=== PATIENT | female | born 1960 | race Caucasian/White ===

== ENCOUNTER → 2023-08-20 09:10 | Outpatient (REF) | payer OTHER, SELFPAY | LOC: MRI 3T 09:10 | PROVIDERS: ATTENDING PHYSICIAN Nurse Practitioner; FAMILY PHYSICIAN Family Medicine | DX: H53.9 Unspecified visual disturbance (principal); Z87.820 Personal history of traumatic brain injury; H51.9 Unspecified disorder of binocular movement | CPT/HCPCS: 70551 ==

== ENCOUNTER → 2023-09-23 12:06 | Outpatient (REF) | payer OTHER, SELFPAY | LOC: RAD 12:06 | PROVIDERS: FAMILY PHYSICIAN Family Medicine | DX: I10 Essential (primary) hypertension (principal); H51.11 Convergence insufficiency; H53.9 Unspecified visual disturbance; H53.2 Diplopia; R26.89 Other abnormalities of gait and mobility; G44.329 Chronic post-traumatic headache, not intractable; M54.2 Cervicalgia | CPT/HCPCS: 72050 ==

== ENCOUNTER → 2023-10-10 09:18 | Outpatient (REF) | payer OTHER, SELFPAY | LOC: RAD 09:18 | PROVIDERS: ATTENDING PHYSICIAN Internal Medicine Gastroenterology; FAMILY PHYSICIAN Family Medicine | DX: K57.92 Diverticulitis of intestine, part unspecified, without perforation or abscess without bleeding (principal) | CPT/HCPCS: 74177; Q9967 ==

== ENCOUNTER → 2023-11-07 06:31 | Day surgery (SDC) | payer OTHER, SELFPAY | LOC: GI 06:31 | PROVIDERS: ATTENDING PHYSICIAN Internal Medicine Gastroenterology | DX: K57.30 Diverticulosis of large intestine without perforation or abscess without bleeding (principal); K64.0 First degree hemorrhoids; D12.0 Benign neoplasm of cecum; D12.3 Benign neoplasm of transverse colon; K62.1 Rectal polyp; K63.5 Polyp of colon | CPT/HCPCS: 45385; 45381; 88305 ==

== ENCOUNTER → 2023-11-14 13:49 | Outpatient (REF) | payer OTHER, SELFPAY | LOC: PAVMRI 13:49 | PROVIDERS: ATTENDING PHYSICIAN Nurse Practitioner; OTHER PHYSICIAN Surgery; PRIMARYCARE PHYSICIAN Family Medicine | DX: S06.0X0S Concussion without loss of consciousness, sequela (principal); Z87.820 Personal history of traumatic brain injury; H57.02 Anisocoria; I10 Essential (primary) hypertension; H51.11 Convergence insufficiency; H53.9 Unspecified visual disturbance; H53.2 Diplopia; R26.89 Other abnormalities of gait and mobility; G44.329 Chronic post-traumatic headache, not intractable; S06.0X0D Concussion without loss of consciousness, subsequent encounter; M54.2 Cervicalgia | CPT/HCPCS: 70546; 70549; A9585 ==

== ENCOUNTER 2023-11-24 11:21 | Emergency (ER) | payer SELFPAY ==
[2023-11-24 11:25] VITALS: BP 168/97
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
[2023-11-24] MEDS: ASPIRIN 325 MG PO (12:34)
[2023-11-24 13:16] VITALS: BP 150/91
[2023-11-24 15:06] VITALS: BP 164/89
== END 2023-11-24 15:05 | disposition home or self-care (01) ==
LOC: EMR 11:21
PROVIDERS: EMERGENCY PHYSICIAN Emergency Medicine; FAMILY PHYSICIAN Family Medicine
DX: I25.110 Atherosclerotic heart disease of native coronary artery with unstable angina pectoris (principal); V43.52XA Car driver injured in collision with other type car in traffic accident, initial encounter; Y92.410 Unspecified street and highway as the place of occurrence of the external cause; I25.2 Old myocardial infarction; Z90.49 Acquired absence of other specified parts of digestive tract; Z95.5 Presence of coronary angioplasty implant and graft
CPT/HCPCS: 99284; 70450; 72125; 93005

== ENCOUNTER → 2024-02-28 13:19 | Outpatient (REF) | payer OTHER, MEDICARE, SELFPAY ==
[2024-02-28 14:21] LABS: Blood Urea Nitrogen 12 mg/dl (7-17)
== END ==
LOC: REG 13:19
PROVIDERS: ATTENDING PHYSICIAN Internal Medicine Gastroenterology; FAMILY PHYSICIAN Family Medicine
DX: K57.92 Diverticulitis of intestine, part unspecified, without perforation or abscess without bleeding (principal)
CPT/HCPCS: 36415; 82565; 84520

== ENCOUNTER → 2024-02-29 13:41 | Outpatient (REF) | payer MEDICARE, SELFPAY | LOC: HWRAD 13:41 | PROVIDERS: ATTENDING PHYSICIAN Internal Medicine Gastroenterology; FAMILY PHYSICIAN Family Medicine | DX: K57.92 Diverticulitis of intestine, part unspecified, without perforation or abscess without bleeding (principal) | CPT/HCPCS: 74177; Q9967 ==

== ENCOUNTER → 2024-03-23 09:41 | Outpatient (REF) | payer MEDICARE, SELFPAY | LOC: HWRAD 09:41 | PROVIDERS: ATTENDING PHYSICIAN Internal Medicine Gastroenterology; FAMILY PHYSICIAN Family Medicine | DX: R10.84 Generalized abdominal pain (principal) | CPT/HCPCS: 76700 ==

== ENCOUNTER 2024-04-02 15:07 | Emergency (ER) | payer MEDICARE, SELFPAY ==
[2024-04-02 15:19] VITALS: BP 175/140
[2024-04-02 16:15] VITALS: BP 176/111
--- NOTE | 2024-04-02 17:33 | ED.GENMED ---
History of Present Illness
General
Chief Complaint: Skin Surface Trauma
Source: patient
Exam Limitations: none
Time Seen by Provider: 04/02/24 17:08
Nursing documentation reviewed up to this point in time: agreed with
History of Present Illness
History of Present Illness:
64 y/o F
R hand dominant
this am she accidnetally cut the top of her right 4th finger and had a flap laceration
no deficits with function
went to where she had the wound irrigated and then it was glued and pt believes the glue looks worse than the origianl wound and she wants 2nd opinion
she also felt like her dressing was too tight
tetanus is likey UTD, she doesn't want anothe calos.
Past History
Past History
ED Past Medical History: Other (History of headaches, GI bleed)
ED Past Surgical History: Cholecystectomy and Other (Exploratory laparotomy following blunt trauma and repair of liver laceration, breast augmentation, shoulder surgery)
Social History
Tobacco: Non-smoker
Alcohol: None
Drug: None
Personal: Single
Living: alone
Employment: Employed
Review of Systems
Review of Systems
Allergies reviewed?: Yes
All Other Systems: Not applicable
Phy Exam
Physical Exam
Physical Exam:
GENERAL: Alert , in no apparent distress, comfortable at rest
HEAD: NCAT
CV: cap refill intact;
NEUROLOGICAL: Alert and oriented, no focal neuro deficits, , 5/5 strength, sensation intact, ambulation slight limp right leg
SKIN: Warm and dry,
flap laceration dorsum PIP joint R 4th finger is closed; with glue that is puprplish in color, thickened and also with slight blood under the glue
there is no sign of wound dehiscence
MUSCULOSKELETAL: wound is glued
no deficitis
finger held in extensio ndue to glue
PSYCH: Normal and appropriate interaction.
Course
Vital Signs
Initial and Last Documented VS:
Initial Vital Signs
Temp Pulse Resp BP Pulse Ox
36.9 C 106 18 175/140 97
04/02/24 15:19 04/02/24 15:19 04/02/24 15:19 04/02/24 15:19 04/02/24 15:19
Last Documented Vital Signs
Temp Pulse Resp BP Pulse Ox
36.9 C 100 16 176/111 97
04/02/24 15:19 04/02/24 16:15 04/02/24 16:15 04/02/24 16:15 04/02/24 15:19
MDM/Problems Addressed
Differential Diagnosis Includes:
wound care, laceration
MDM/Problems Addressed:
64 y/o F
with laceration flap to R PIP joint of 4th finger
closed at with glue
did not like cosmesis of the glue
but the wound appears closed
did offer to have th epatient massage the wound with petroleum to try to remove it and then i could stitch it but she declined hwich i believe is rasonable to leave it
looser dressing applied
recommen dthe finger splint
*Critical Care Note
Total Time (30-74mins, 75-104mins- exclusive of procedures): Not Applicable
ED Attending Note
-
Portions of this chart may have been created with voice recognition software.� Occasional wrong word or��sound alike� substitutions may have occurred due to the inherent limitations of voice recognition software.
Discharge Plan
Departure
Patient Disposition: Home (Routine Discharge)
Date of Disposition: 04/02/24
Time of Disposition: 17:33
Patient with high blood pressure during this ER visit?: Yes
Condition: Fair
Covid-19: Not Applicable
Discharge Problem:
Laceration of right ring finger, Visit for wound check
Instructions: Laceration Repair With Glue (DC), BLOOD PRESSURE
Prescriptions:
No Action
sumatriptan succinate [Imitrex] 50 MG tablet
50 mg PO DAILYPRN PRN (Reason: migraine)
Rx Instructions:
Can take 2nd stab if needed daily.
cyanocobalamin (vitamin B-12) 1,000 mcg/mL Kit
1,000 mcg SC QMONTH
Kariva (28)
1 tab PO DAILY
Patient Comments:
migraines
albuterol 90 mcg/actuation Aerosol
90 mcg INHALATION DAILY PRN (Reason: asthma)
Referrals:
Tevin Zamudio MD [Family Provider] - Follow up in 2-3 days
Activity Restrictions/Additional Instructions:
Keep the wound clean and dry for 2 days. You can change the dressing tomorrow and use a Band-Aid in the finger splint to keep your finger straight. Do this for 2 days. Then you can remove the dressings and get your hand wet as usual. The glue
will peel off and follow off over the next 3 to 5 days. Return for any concerns. Your blood pressure was quite elevated which could be probably from being stressed but make sure to have this rechecked.
Interventions
Interventions:
*Risk Screen - Suicide Last Done: 04/02/24 15:19
*General Assessment Last Done: 04/02/24 15:19
*Neglect/Abuse Screening Last Done: 04/02/24 15:19
*Nursing Disposition Last Done: 04/02/24 17:44
ED-Skin Assessment Last Done: 04/02/24 16:15
Discharge Date and Time
Discharge Date/Time: 04/02/24 17:45
Print Language: LIBERIAN
== END 2024-04-02 17:45 | disposition home or self-care (01) ==
LOC: EMR 15:07
PROVIDERS: EMERGENCY PHYSICIAN Emergency Medicine; FAMILY PHYSICIAN Family Medicine
DX: S61.214A Laceration without foreign body of right ring finger without damage to nail, initial encounter (principal); W45.8XXA Other foreign body or object entering through skin, initial encounter; Z90.49 Acquired absence of other specified parts of digestive tract
CPT/HCPCS: 99282

== ENCOUNTER → 2024-05-17 13:43 | Outpatient (REF) | payer MEDICARE, SELFPAY | LOC: MRI 3T 13:43 | PROVIDERS: ATTENDING PHYSICIAN Orthopaedic Surgery; FAMILY PHYSICIAN Family Medicine | DX: M75.82 Other shoulder lesions, left shoulder (principal) | CPT/HCPCS: 23350; 73040; 73222 ==

== ENCOUNTER → 2024-05-21 06:19 | Day surgery (SDC) | payer MEDICARE, SELFPAY | LOC: GI 06:19 | PROVIDERS: ATTENDING PHYSICIAN Internal Medicine Gastroenterology | PROC: 0DBL8ZX Excision of Transverse Colon, Via Natural or Artificial Opening Endoscopic, Diagnostic (ICD-10-PCS; 2024-05-21) | DX: Z12.11 Encounter for screening for malignant neoplasm of colon (principal); D12.3 Benign neoplasm of transverse colon; K57.30 Diverticulosis of large intestine without perforation or abscess without bleeding; K64.0 First degree hemorrhoids; Z86.0100 Personal history of colon polyps, unspecified | CPT/HCPCS: 45385; 88305 ==

== ENCOUNTER → 2024-07-13 07:56 | Outpatient (REF) | payer MEDICARE, SELFPAY | LOC: WDC 07:56 | PROVIDERS: ATTENDING PHYSICIAN Obstetrics & Gynecology; FAMILY PHYSICIAN Family Medicine | DX: Z12.31 Encounter for screening mammogram for malignant neoplasm of breast (principal) | CPT/HCPCS: 77063; 77067 ==

== ENCOUNTER 2024-08-09 11:57 | Inpatient (IN) | payer MEDICARE, SELFPAY ==
[2024-08-08 18:19] VITALS: BP 198/123
--- NOTE | 2024-08-08 19:19 | ED.GENMED ---
History of Present Illness
General
Chief Complaint: Breathing Problem
Source: patient
Exam Limitations: none
Time Seen by Provider: 08/08/24 19:00
History of Present Illness
History of Present Illness:
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 Patient had a L rotator cuff repair this morning around 10am at [facility] with Dr. Turner. She was doing
well initially after the procedure. Around 5pm this evening, she developed chest tightness and started to cough. She reports coughing up small chucks of blood. She states she is not breathing normally. She also feels feverish. She denies any
wheezing. Of note, patient had to be intubated twice during the procedure due to the balloon breaking.
Past History
Past History
ED Past Medical History: Other (History of headaches, GI bleed)
ED Past Surgical History: Cholecystectomy and Other (Exploratory laparotomy following blunt trauma and repair of liver laceration, breast augmentation, shoulder surgery)
Social History
Tobacco: Non-smoker
Alcohol: None
Drug: None
Personal: Single
Living: alone
Employment: Employed
Phy Exam
General Physical Exam
General Presentation: no apparent distress
General Skin: warm and dry
General Habitus: normal
General Mental: alert
ENT Exam
ENT Exam: normocephalic
Cardiovascular Exam
Cardiovascular Exam: tachycardia
Pulmonary Exam
Pulmonary Exam: lungs clear, no respiratory distress, no rales, no crackles, no rhonchi, no wheezing and other (No wheezing or rales noted. Speaking in full sentences without difficulty. )
Neurological Exam
Neurological Exam: alert
[place] Coma Scale
Eye Opening: Spontaneous
Verbal Response: Oriented
Motor Response: Obeys Commands
GCS Total Score: 15
Musculoskeletal Exam
Musculoskeletal Exam: other (LUE in sling)
Skin Exam
Skin Exam: normal color and warm/dry
Scores
Heart Failure Risk
Heart Failure Risk Score: Not Applicable
Course
Orders/Labs/Results
Orders:
Orders
08/08/24 18:23
ECG [Electrocardiogram (*1)] Urgent
Reason for Study: Shortness of Breath
08/08/24 19:18
Cardiac Monitoring- Treatment ONCE
08/08/24 19:30
Complete Blood Count/With Diff Urgent
Comprehensive Metabolic Panel Urgent
D-Dimer Urgent
Troponin I Urgent
08/08/24 20:04
CT Chest PE Study Urgent
Comment:
Reason For Exam: SOB, tachycardia, elevated D-dimer
08/08/24 21:50
Azithromycin 500 mg/250 ml [Zithromax Infusion] 500 mg in 250 ml IV NOW
CefTRIAXone [Rocephin] 2,000 mg IV NOW STA
08/08/24 22:07
COVID-19 Antigen Urgent
Source: Nasal Swab
Influenza A+B Rapid Molecular Urgent
EDER Source: Nasal Swab
Specimen Description:
08/08/24 22:33
Admit/Transfer Patient As Directed
Co-Sign Provider:
Level of Care: Observation services
Assign to:: Medical/Surgical
Physician / Group: Haley Donovan
Diagnosis: pneumonia
Code Status As Directed
Resuscitation Status: Full Code
PRN Pain Medication Management As Directed
May give lesser potent ordered pain med per pt: Yes
preference::
Protocol:: Medication orders for pain may be administered in a
manner that supports deferring to patient preference
when the pt is:
- Requesting an ordered lesser potent pain medication.
Least to most potent pain medications are defined
as: acetaminophen < NSAID < tramadol < opioids
(morphine, oxycodone, hydromorphone).
- Requesting a lesser dose of the same medication IF
ORDERED.
- Requesting a less intrusive route of administration
if both routes are prescribed by the provider (PO <
IV).
08/09/24 00:18
Albuterol [ProAIR HFA INHALER] 90 puff INH R DAILYPRN PRN
Sumatriptan Succinate [Imitrex] 50 mg PO DAILYPRN PRN
08/09/24 00:18
Respiratory Culture/Gram Stain Urgent
EDER Source: Sputum
Specimen Description:
Activity As Directed
Activity Level: Out of Bed-Early Mobility
Intake/ Output As Directed
Frequency: Per unit guidelines
Vital Signs As Directed
Frequency: Per unit guidelines
Weight As Directed
Frequency: Once
Comment: on admission
DX Deep Vein Thrombosis Video Routine
08/09/24 06:00
Basic Metabolic Panel IN AM
Complete Blood Count/No Diff IN AM
08/09/24 08:00
Kariva (28) See Dose Instructions PO DAILY
08/09/24 Dinner
Regular
At Your Request: Full Participation
Does patient need a safe tray?: No
08/09/24 18:00
Enoxaparin Sodium [Lovenox] 40 mg SC QPM
08/09/24 22:00
Azithromycin 500 mg/250 ml [Zithromax Infusion] 500 mg in 250 ml IV Q24H
CefTRIAXone [Rocephin] 2,000 mg IV Q24H
Abnormal Lab Results
08/08/24
19:30
WBC 14.9 H 10^3/uL
(4.8-10.8)
MCV 80.3 L fL
(81.0-99.0)
MCHC 37.1 H g/dL
(33.0-37.0)
MPV 12.4 H fL
(7.4-10.4)
Abs Immat Gran (auto) 0.1 H 10^3/uL
(0-0.05)
Absolute Neuts (auto) 13.9 H 10^3/uL
(1.4-6.5)
Absolute Lymphs (auto) 0.6 L 10^3/uL
(1.2-3.4)
Neutrophils % 93.4 H %
(42.2-75.2)
Lymphocytes % 4.1 L %
(20.5-51.1)
D-Dimer 1.38 H ug/mlFEU
(0.00-0.50)
Carbon Dioxide 17 L mmol/L
(22-30)
Glucose 236 H mg/dl
(70-99)
Total Protein 8.6 H g/dl
(6.3-8.2)
Albumin 5.4 H g/dl
(3.5-5.0)
08/08/24 19:30
08/08/24 19:30
Vital Signs
Initial and Last Documented VS:
Initial Vital Signs
Temp Pulse Resp BP Pulse Ox
98.2 F 135 20 198/123 99
08/08/24 18:19 08/08/24 18:19 08/08/24 18:19 08/08/24 18:19 08/08/24 18:19
Last Documented Vital Signs
Temp Pulse Resp BP Pulse Ox
99.3 F 112 18 151/91 96
08/09/24 00:23 08/09/24 00:23 08/09/24 00:23 08/08/24 23:00 08/09/24 00:23
MDM/Problems Addressed
Differential Diagnosis Includes:
64yoF here with chest tightness and hemoptysis that began this evening. S/p L rotator cuff surgery this morning and 2 intubations due to broken balloon. Hx of asthma and hypersensitive lungs. She is hypertensive in triage. HR 135. Oxygen saturation
99% on room air. She is speaking in full sentences without difficulty. Differential diagnosis includes but is not limited to: bronchial irritation due to intubation, bronchospasm/asthma, PE
Initial ED plan: Check cardiac labs, D-dimer, EKG, and CXR.
*EKG
Interpreted by ED Provider?: Yes
EKG Intrepretation Date: 08/08/24
Heart Rate: 121
Rate: tachycardiac
Rhythm: sinus
[place]: normal axis
Interval: normal interval
QRS Pattern: normal QRS
Ischemia: non-specific ST changes
*Critical Care Note
Total Time (30-74mins, 75-104mins- exclusive of procedures): Not Applicable
Update Note
Update Note:
Labs reveal a leukocytosis with a white count of 14.9. D-dimer elevated and chest x-ray order changed to a CTA chest. CT is negative for pulmonary embolism although does reveal left lower lobe atelectasis vs. pneumonia as well as subtle pneumonia
in the right upper lobe. Patient persistently tachycardic on reassessment and does not feel comfortable going home at this point. IV Rocephin and azithromycin ordered. She was admitted for further management.
ED Attending Note
-
Portions of this chart may have been created with voice recognition software.� Occasional wrong word or��sound alike� substitutions may have occurred due to the inherent limitations of voice recognition software.
Discharge Plan
Departure
Patient Disposition: Admit
Date of Disposition: 08/08/24
Time of Disposition: 21:52
Presentation/result/management discussed w/ accepting MD/DO: Hospitalist
Discharge Problem:
Pneumonia
Interventions
Interventions:
*Risk Screen - Suicide Last Done: 08/08/24 19:41
*General Assessment Last Done: 08/08/24 18:19
*Neglect/Abuse Screening Last Done: 08/08/24 19:41
*ED- Fall Risk Assessment Last Done: 08/08/24 19:41
*ED COVID-19 Vaccine History Last Done: 08/08/24 19:41
*Nursing Disposition Last Done: 08/09/24 00:29
ED- Cardiac Assessment Last Done: 08/08/24 19:41
ED- Pulmonary Assessment Last Done: 08/08/24 19:41
Discharge Date and Time
Discharge Date/Time: 08/09/24 00:30
[2024-08-08 19:30] VITALS: BP 165/90
[2024-08-08 19:37] LABS: % Basophils 0.2 % (0-2); % Immature Granulocytes 0.5 % (0-0.5); % Lymphocytes 4.1 % (20.5-51.1); % Monocytes 1.8 % (1.7-9.3); % Neutrophils 93.4 % (42.2-75.2); Absolute Immature Granulocytes 0.1 10^3/uL (0-0.05); Absolute Lymphocytes 0.6 10^3/uL (1.2-3.4); Absolute Monocytes 0.3 10^3/uL (0.1-0.6); Absolute Neutrophils 13.9 10^3/uL (1.4-6.5); Hematocrit 42.9 % (37.0-47.0); Hemoglobin 15.9 g/dL (12.0-16.0); Mean Corp Hgb Conc. 37.1 g/dL (33.0-37.0); Mean Corpuscular Hgb 29.8 pg (27.0-31.0); Mean Corpuscular Volume 80.3 fL (81.0-99.0); Mean Platelet Volume 12.4 fL (7.4-10.4); Nucleated Red Blood Cells % 0 %; Platelet Count 262 10^3/uL (130-400); Red Blood Cell Count 5.34 10^6/uL (4.20-5.40); Red Cell Dist. Width 12.9 % (11.5-14.5); White Blood Cell Count 14.9 10^3/uL (4.8-10.8)
[2024-08-08 19:48] VITALS: BMI 22.6
[2024-08-08 19:50] LABS: AST (SGOT) 29 U/L (14-36); Albumin 5.4 g/dl (3.5-5.0); Alkaline Phosphatase 65 U/L (38-126); Blood Urea Nitrogen 8 mg/dl (7-17); Calcium 9.3 mg/dl (8.4-10.2); Carbon Dioxide 17 mmol/L (22-30); Chloride 101 mmol/L (98-107); Estimated Creatinine Clearance 74 ml/min; Glucose 236 mg/dl (70-99); Potassium 3.7 mmol/L (3.5-5.1); Sodium 136 mmol/L (135-145); Total Bilirubin 0.6 mg/dl (0.2-1.3); Total Protein 8.6 g/dl (6.3-8.2); eGFR > 60.00
[2024-08-08 19:52] LABS: D-Dimer 1.38 ug/mlFEU (0.00-0.50)
[2024-08-08 19:59] LABS: Troponin I < 0.012 ng/ml
[2024-08-08 20:00] LABS: ALT (SGPT) < 30 U/L (0-35)
[2024-08-08 20:45] VITALS: BP 157/95
[2024-08-08 21:00] VITALS: BP 134/101
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
[2024-08-08 22:00] VITALS: BP 171/96
[2024-08-08] MEDS: ROCEPHIN 2000 MG IV (22:22)
[2024-08-08] MEDS: ZITHROMAX INFUSION 250 IV (22:22)
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
[2024-08-08 22:42] LABS: COVID-19 Antigen Negative (Negative)
[2024-08-08 23:00] VITALS: BP 151/91
[2024-08-09 00:19] VITALS: BMI 24.0
[2024-08-09 00:23] VITALS: BMI 24.0
[2024-08-09 01:00] VITALS: BP 137/83
--- NOTE | 2024-08-09 01:51 | PTCARENOTE ---
Patient received from ED via stretcher and ambulated to room with Ax1. She was oriented to room and surroundings. Left brace in place. Left shoulder bulky surgical dressing C/D/I. Plan of care reviewed with patient. See nursing assessment
for physical findings.
[2024-08-09 06:53] VITALS: BP 138/91
[2024-08-09 07:27] LABS: Hematocrit 38.6 % (37.0-47.0); Hemoglobin 14.3 g/dL (12.0-16.0); Mean Corpuscular Hgb 29.9 pg (27.0-31.0); Mean Corpuscular Volume 80.8 fL (81.0-99.0); Mean Platelet Volume 12.5 fL (7.4-10.4); Platelet Count 224 10^3/uL (130-400); Red Blood Cell Count 4.78 10^6/uL (4.20-5.40); White Blood Cell Count 12.9 10^3/uL (4.8-10.8)
--- NOTE | 2024-08-09 08:19 | W.PN.HOSP.TC ---
Today's Communication/Plan
-
Upgrade to inpatient
Assessment / Plan
Assessment / Plan
Impression:
This is a 64-year-old with past medical history of exercise-induced asthma, migraine headaches, recent surgery who comes to the emergency department for shortness of breath and palpitations, patient underwent left rotator cuff surgery with nerve
block in the morning, There was some trauma during intubation and she had to be intubated twice with rupture of the cuff balloon with bleeding from the lips and gums. came back with chest tightness and slight cough. CT PE negative but shows right
upper lobe pneumonia, admitted for aspiration pneumonia.
Patient still tachycardic and still with leukocytosis, upgraded to inpatient.
Assessment/plan:
Sepsis secondary to aspiration pneumonia
Patient meets sepsis criteria on admission with leukocytosis and tachycardia
WBC 14.9, Neut 93.4, D-Dimer 1.[address]: No evidence of pulmonary embolism.
Pulmonary artery branching order level of the most proximal pulmonary embolism: N/A
Emphysematous lung changes.
Left lower lobe atelectasis versus pneumonia. Subtle pneumonia in the posterolateral right upper lobe.
Continue IV antibiotic ceftriaxone and Azithromycin
- supportive care
08/09
Upgraded to inpatient.
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
Rotator cuff tear s/p Left rotator cuff repair 08/08
- continue to follow up out patient with [facility]
History of asthma
- continue PRN Albuterol
History of migraine
- continue Kariva (patient will supply)
Supraventricular tachycardia s/p ablation
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
CODE STATUS: Full code
DVT prophylaxis: Lovenox
Diet: Regular diet
Total time spent on today's encounter was 65 minutes which included time spent in counseling the patient/family regarding diagnosis and treatment plan as listed above, goals of care, and symptom management. Case was discussed with nursing staff,
specialists, and care coordinators/case management. All labs and imaging personally reviewed by me. Remainder the time spent in detailed review of previous records, lab data, imaging, and other medical provider documentation.
Anticipated Discharge: Within 24 hours
Subjective/Interval History
-
Date of Service: August 09, 2024
Patient seen and examined at bedside.
Patient still with diffuse Rales on physical exam, shortness of breath, productive cough.
Patient remains tachycardic and still with leukocytosis.
Patient will be upgraded to inpatient.
Objective Data
-
Labs:
Laboratory Results
08/09/24
06:25
WBC 12.9 H
Hgb 14.3
Hct 38.6
Plt Count 224
Sodium Pending
Potassium Pending
Chloride Pending
Carbon Dioxide Pending
BUN Pending
Creatinine Pending
Glucose Pending
Calcium Pending
Vital Signs:
Vital Signs
Temp Pulse Resp BP Pulse Ox
99.3 F 100 18 137/83 96
08/09/24 00:23 08/09/24 01:00 08/09/24 00:23 08/09/24 01:00 08/09/24 00:23
Physical Exam
-
General: Well Developed, Well Nourished, No Apparent Distress and Comfortable
HEENT: Normocephalic, Atraumatic, Moist Mucous Membranes, No Ptosis, PERRLA and Nose Appears Normal
Respiratory: Rales, Rhonchi, Crackles and Non Labored Respirations
Cardiac: Regular Rhythm and S1/S2
Breast: Deferred by me
GI: Soft, Nontender, Nondistended and Normal Bowel Sounds
Genito-urinary: No Costovertebral Tender
Musculoskeletal: No Clubbing, No Cyanosis and No Edema
Skin: Warm
Neuro: Awake, Alert, Oriented, AO x 3 and No Motor Deficits
Psych: Calm
Data Reviewed
-
Diagnostic Radiology: Image personally visualized and interpreted and Report Reviewed by me
CT Scan: Image personally visualized and interpreted and Report Reviewed by me
Ultrasound: Image personally visualized and interpreted and Report Reviewed by me
MRI: Image personally visualized and interpreted and Report Reviewed by me
Medical Tests (Nuc Med, Echo etc): Image personally visualized and interpreted and Report Reviewed by me
Labs: Labs Reviewed by me
Old Records: Reviewed
[2024-08-09 08:29] LABS: Blood Urea Nitrogen 9 mg/dl (7-17); Calcium 9.2 mg/dl (8.4-10.2); Carbon Dioxide 19 mmol/L (22-30); Chloride 107 mmol/L (98-107); Estimated Creatinine Clearance 55 ml/min; Glucose 150 mg/dl (70-99); Potassium 3.8 mmol/L (3.5-5.1); Sodium 139 mmol/L (135-145); eGFR > 60.00
[2024-08-09] MEDS: NON-FORMULARY ITEM 81 MG PO (14:39)
[2024-08-09] MEDS: NON-FORMULARY ITEM 1 TABLET PO (14:39)
[2024-08-09 15:18] VITALS: BP 121/84
--- NOTE | 2024-08-09 15:21 | CM ---
Patient has switched to inpatient, IMM given at 3pm, 08/09/24, patient lives alone in a multilevel home, patient is independent with adl's and ambulation, no dme, patient was driving, now with left rotator cuff repair 08/08, patient states that she
lives in a multilevel home, is independent with adl's and ambulation, no dme, patient drives.
PCP: Dr. Tevin Zamudio
Pharmacy: [facility] in [place]
Plan; Home when stable.
[2024-08-09] MEDS: LOVENOX 40 MG SC (17:42)
[2024-08-09 19:25] LABS: Hepatitis C Antibody Negative (Negative)
[2024-08-09 19:46] VITALS: BP 136/90
[2024-08-09] MEDS: ROCEPHIN 2000 MG IV (21:38)
[2024-08-09] MEDS: FLUSH (NSS) 2 FLUSH IV (21:38)
[2024-08-09] MEDS: ZITHROMAX INFUSION 250 IV (21:38)
[2024-08-09] MEDS: STERILE WATER FOR INJECTION 20 ML IV (21:38)
[2024-08-09 23:46] VITALS: BP 104/72
[2024-08-10] VITALS (7 sets, daily range): BP systolic 129–174; BP diastolic 74–103
[2024-08-10 06:27] LABS: Hematocrit 34.4 % (37.0-47.0); Hemoglobin 12.6 g/dL (12.0-16.0); Mean Corp Hgb Conc. 36.6 g/dL (33.0-37.0); Mean Corpuscular Hgb 29.9 pg (27.0-31.0); Mean Corpuscular Volume 81.7 fL (81.0-99.0); Mean Platelet Volume 12.8 fL (7.4-10.4); Platelet Count 211 10^3/uL (130-400); Red Blood Cell Count 4.21 10^6/uL (4.20-5.40); Red Cell Dist. Width 13.1 % (11.5-14.5); White Blood Cell Count 9.9 10^3/uL (4.8-10.8)
[2024-08-10 06:54] LABS: Blood Urea Nitrogen 14 mg/dl (7-17); Carbon Dioxide 17 mmol/L (22-30); Chloride 109 mmol/L (98-107); Estimated Creatinine Clearance 55 ml/min; Glucose 138 mg/dl (70-99); Potassium 4.2 mmol/L (3.5-5.1); Sodium 138 mmol/L (135-145); eGFR > 60.00
[2024-08-10] MEDS: NON-FORMULARY ITEM 81 MG PO (08:07)
[2024-08-10] MEDS: NON-FORMULARY ITEM 1 TABLET PO (08:08)
[2024-08-10] MEDS: SOLU-MEDROL PF 40 MG IV ×2 (09:53→17:23)
--- NOTE | 2024-08-10 11:50 | W.PN.HOSP.TC ---
Today's Communication/Plan
-
Will continue with IV antibiotics and IV steroid for additional 24 hours
Assessment / Plan
Assessment / Plan
Impression:
This is a 64-year-old with past medical history of exercise-induced asthma, migraine headaches, recent surgery who comes to the emergency department for shortness of breath and palpitations, patient underwent left rotator cuff surgery with nerve
block in the morning, There was some trauma during intubation and she had to be intubated twice with rupture of the cuff balloon with bleeding from the lips and gums. came back with chest tightness and slight cough. CT PE negative but shows right
upper lobe pneumonia, admitted for aspiration pneumonia.
Patient still tachycardic and still with leukocytosis, upgraded to inpatient.
Still with hoarseness of voice, added steroid
Assessment/plan:
Sepsis secondary to aspiration pneumonia
Patient meets sepsis criteria on admission with leukocytosis and tachycardia
WBC 14.9, Neut 93.4, D-Dimer 1.[address]: No evidence of pulmonary embolism.
Pulmonary artery branching order level of the most proximal pulmonary embolism: N/A
Emphysematous lung changes.
Left lower lobe atelectasis versus pneumonia. Subtle pneumonia in the posterolateral right upper lobe.
Continue IV antibiotic ceftriaxone and Azithromycin
- supportive care
08/09
Upgraded to inpatient.
youth nutritional monitor
08/10
Leukocytosis improved.
Still with coughing and shortness of breath.
Added IV steroid.
Incentive spirometer
Rotator cuff tear s/p Left rotator cuff repair 08/08
- continue to follow up out patient with [facility]un[facility]
History of asthma
- continue PRN Albuterol
History of migraine
- continue Kariva (patient will supply)
Supraventricular tachycardia s/p ablation
youth nutritional monitor
CODE STATUS: Full code
DVT prophylaxis: Lovenox
Diet: Regular diet
Total time spent on today's encounter was 65 minutes which included time spent in counseling the patient/family regarding diagnosis and treatment plan as listed above, goals of care, and symptom management. Case was discussed with nursing staff,
specialists, and care coordinators/case management. All labs and imaging personally reviewed by me. Remainder the time spent in detailed review of previous records, lab data, imaging, and other medical provider documentation.
Anticipated Discharge: Within 24 hours
Subjective/Interval History
-
Date of Service: August 10, 2024
Patient still with shortness of breath coughing.
Still with muffled voice, added IV steroid today.
Added incentive spirometer.
Will continue with IV antibiotics and IV steroid for additional 24 hours
Objective Data
-
Labs:
Laboratory Results
08/10/24
06:07
WBC 9.9
Hgb 12.6
Hct 34.4 L
Plt Count 211
Sodium 138
Potassium 4.2
Chloride 109 H
Carbon Dioxide 17 L
BUN 14
Creatinine 0.8
Glucose 138 H
Calcium 9.0
Vital Signs:
Vital Signs
Temp Pulse Resp BP Pulse Ox
98.5 F 89 18 141/90 96
08/10/24 11:38 08/10/24 11:38 08/10/24 11:38 08/10/24 11:38 08/10/24 11:38
I&O
08/09/24 08/10/24 08/11/24
06:59 06:59 06:59
Intake Total 990 / 990
Balance 990 / 990
Physical Exam
-
General: Well Developed, Well Nourished, No Apparent Distress and Comfortable
HEENT: Normocephalic, Atraumatic, Moist Mucous Membranes, No Ptosis, PERRLA and Nose Appears Normal
Respiratory: Rales, Rhonchi, Crackles and Non Labored Respirations
Cardiac: Regular Rhythm and S1/S2
Breast: Deferred by me
GI: Soft, Nontender, Nondistended and Normal Bowel Sounds
Genito-urinary: No Costovertebral Tender
Musculoskeletal: No Clubbing, No Cyanosis, No Edema and Other (Left shoulder sling)
Skin: Warm
Neuro: Awake, Alert, Oriented, AO x 3 and No Motor Deficits
Psych: Calm
Data Reviewed
-
Diagnostic Radiology: Image personally visualized and interpreted and Report Reviewed by me
CT Scan: Image personally visualized and interpreted and Report Reviewed by me
Ultrasound: Image personally visualized and interpreted and Report Reviewed by me
MRI: Image personally visualized and interpreted and Report Reviewed by me
Medical Tests (Nuc Med, Echo etc): Image personally visualized and interpreted and Report Reviewed by me
Labs: Labs Reviewed by me
Old Records: Reviewed
[2024-08-10] MEDS: LOVENOX 40 MG SC (17:23)
[2024-08-10] MEDS: STERILE WATER FOR INJECTION 20 ML IV (21:15)
[2024-08-10] MEDS: ZITHROMAX INFUSION 250 IV (21:15)
[2024-08-10] MEDS: ROCEPHIN 2000 MG IV (21:16)
[2024-08-11] MEDS: SOLU-MEDROL PF 40 MG IV ×3 (01:12→16:34)
[2024-08-11 03:18] VITALS: BP 139/91
[2024-08-11 06:33] LABS: Hematocrit 39.6 % (37.0-47.0); Hemoglobin 14.7 g/dL (12.0-16.0); Mean Corp Hgb Conc. 37.1 g/dL (33.0-37.0); Mean Corpuscular Hgb 29.6 pg (27.0-31.0); Mean Corpuscular Volume 79.8 fL (81.0-99.0); Mean Platelet Volume 12.7 fL (7.4-10.4); Platelet Count 245 10^3/uL (130-400); Red Blood Cell Count 4.96 10^6/uL (4.20-5.40); Red Cell Dist. Width 13.1 % (11.5-14.5); White Blood Cell Count 13.7 10^3/uL (4.8-10.8)
[2024-08-11 07:08] LABS: Blood Urea Nitrogen 10 mg/dl (7-17); Calcium 10.3 mg/dl (8.4-10.2); Carbon Dioxide 21 mmol/L (22-30); Chloride 106 mmol/L (98-107); Estimated Creatinine Clearance 74 ml/min; Glucose 142 mg/dl (70-99); Potassium 4.5 mmol/L (3.5-5.1); Sodium 139 mmol/L (135-145); eGFR > 60.00
[2024-08-11 07:10] VITALS: BP 143/90
[2024-08-11] MEDS: TORADOL 30 MG IV (09:11)
[2024-08-11] MEDS: NON-FORMULARY ITEM 81 MG PO (09:12)
[2024-08-11] MEDS: NON-FORMULARY ITEM 1 TABLET PO (09:12)
[2024-08-11] MEDS: VISBIOME 2 CAP PO (09:51)
[2024-08-11] MEDS: PROTONIX 40 MG PO (09:52)
[2024-08-11 11:05] VITALS: BP 157/94
--- NOTE | 2024-08-11 12:33 | W.PN.HOSP.TC ---
Today's Communication/Plan
-
Discharge home today after getting 3 PM antibiotic dose and steroid
Assessment / Plan
Assessment / Plan
Impression:
This is a 64-year-old with past medical history of exercise-induced asthma, migraine headaches, recent surgery who comes to the emergency department for shortness of breath and palpitations, patient underwent left rotator cuff surgery with nerve
block in the morning, There was some trauma during intubation and she had to be intubated twice with rupture of the cuff balloon with bleeding from the lips and gums. came back with chest tightness and slight cough. CT PE negative but shows right
upper lobe pneumonia, admitted for aspiration pneumonia.
Patient still tachycardic and still with leukocytosis, upgraded to inpatient.
Still with hoarseness of voice, added steroid
Shortness of breath and hoarseness of voice improved with steroid.
Will discharge home today after antibiotic and steroid dose.
Assessment/plan:
Sepsis secondary to aspiration pneumonia
Patient meets sepsis criteria on admission with leukocytosis and tachycardia
WBC 14.9, Neut 93.4, D-Dimer 1.[address]: No evidence of pulmonary embolism.
Pulmonary artery branching order level of the most proximal pulmonary embolism: N/A
Emphysematous lung changes.
Left lower lobe atelectasis versus pneumonia. Subtle pneumonia in the posterolateral right upper lobe.
Continue IV antibiotic ceftriaxone and Azithromycin
- supportive care
08/09
Upgraded to inpatient.
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
08/10
Leukocytosis improved.
Still with coughing and shortness of breath.
Added IV steroid.
Incentive spirometer
Hoarseness of voice.
Improved with
Rotator cuff tear s/p Left rotator cuff repair 08/08
- continue to follow up out patient with [facility]
History of asthma
- continue PRN Albuterol
History of migraine
- continue Kariva (patient will supply)
Supraventricular tachycardia s/p ablation
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
CODE STATUS: Full code
DVT prophylaxis: Lovenox
Diet: Regular diet
Total time spent on today's encounter was 65 minutes which included time spent in counseling the patient/family regarding diagnosis and treatment plan as listed above, goals of care, and symptom management. Case was discussed with nursing staff,
specialists, and care coordinators/case management. All labs and imaging personally reviewed by me. Remainder the time spent in detailed review of previous records, lab data, imaging, and other medical provider documentation.
Anticipated Discharge: Today
Subjective/Interval History
-
Date of Service: August 11, 2024
Patient seen and examined at bedside, hoarseness of voice improved, patient denies any chest pain , shortness of breath Improved, no abdominal pain, no nausea, no vomiting, no diarrhea or constipation.
Plan for discharge home today.
Objective Data
-
Labs:
Laboratory Results
08/11/24
05:43
WBC 13.7 H
Hgb 14.7
Hct 39.6
Plt Count 245
Sodium 139
Potassium 4.5
Chloride 106
Carbon Dioxide 21 L
BUN 10
Creatinine 0.6
Glucose 142 H
Calcium 10.3 H
Vital Signs:
Vital Signs
Temp Pulse Resp BP Pulse Ox
98.2 F 86 18 157/94 96
08/11/24 11:05 08/11/24 11:05 08/11/24 11:05 08/11/24 11:05 08/11/24 11:05
I&O
08/10/24 08/11/24 08/12/24
06:59 06:59 06:59
Intake Total 990 / 990 240 / 240
Output Total 100 / 100
Balance 990 / 990 140 / 140
Physical Exam
-
General: Well Developed, Well Nourished, No Apparent Distress and Comfortable
HEENT: Normocephalic, Atraumatic, Moist Mucous Membranes, No Ptosis, PERRLA and Nose Appears Normal
Respiratory: Rales, Rhonchi, Crackles and Non Labored Respirations
Cardiac: Regular Rhythm and S1/S2
Breast: Deferred by me
GI: Soft, Nontender, Nondistended and Normal Bowel Sounds
Genito-urinary: No Costovertebral Tender
Musculoskeletal: No Clubbing, No Cyanosis, No Edema and Other (Left shoulder sling)
Skin: Warm
Neuro: Awake, Alert, Oriented, AO x 3 and No Motor Deficits
Psych: Calm
Data Reviewed
-
Diagnostic Radiology: Image personally visualized and interpreted and Report Reviewed by me
CT Scan: Image personally visualized and interpreted and Report Reviewed by me
Ultrasound: Image personally visualized and interpreted and Report Reviewed by me
MRI: Image personally visualized and interpreted and Report Reviewed by me
Medical Tests (Nuc Med, Echo etc): Image personally visualized and interpreted and Report Reviewed by me
Labs: Labs Reviewed by me
Old Records: Reviewed
--- NOTE | 2024-08-11 12:55 | W.DCSUMMARY ---
Addendum entered and electronically signed by Alessandro Diallo MD 08/20/24 14:41:
Sepsis/Aspiration Pneumonia is a complication of the surgery/anesthesia intubation
Original Note:
Discharge Summary
Discharge Data
Date of Admission: 08/09/24
Date of Discharge: 08/11/24
-
Pending Results: No
Hospital Course
Hospital course
This is a 64-year-old with past medical history of exercise-induced asthma, migraine headaches, recent surgery who comes to the emergency department for shortness of breath and palpitations, patient underwent left rotator cuff surgery with nerve
block in the morning, There was some trauma during intubation and she had to be intubated twice with rupture of the cuff balloon with bleeding from the lips and gums. came back with chest tightness and slight cough. CT PE negative but shows right
upper lobe pneumonia, admitted for aspiration pneumonia.
Patient still tachycardic and still with leukocytosis, upgraded to inpatient.
Still with hoarseness of voice, added steroid
Shortness of breath and hoarseness of voice improved with steroid.
Will discharge home today after antibiotic and steroid dose
During hospitalization patient was treated from the following
Sepsis secondary to aspiration pneumonia
Patient meets sepsis criteria on admission with leukocytosis and tachycardia
WBC 14.9, Neut 93.4, D-Dimer 1.[address]: No evidence of pulmonary embolism.
Pulmonary artery branching order level of the most proximal pulmonary embolism: N/A
Emphysematous lung changes.
Left lower lobe atelectasis versus pneumonia. Subtle pneumonia in the posterolateral right upper lobe.
Continue IV antibiotic ceftriaxone and Azithromycin
- supportive care
5
Upgraded to inpatient.
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
08/10
Leukocytosis improved.
Still with coughing and shortness of breath.
Added IV steroid.
Incentive spirometer
Hoarseness of voice.
Improved with
Rotator cuff tear s/p Left rotator cuff repair 08/08
- continue to follow up out patient with [facility]
History of asthma
- continue PRN Albuterol
History of migraine
- continue Kariva (patient will supply)
Supraventricular tachycardia s/p ablation
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
CODE STATUS: Full code
DVT prophylaxis: Lovenox
Diet: Regular diet
Total time spent on today's encounter was 40 minutes which included time spent in counseling the patient/family regarding diagnosis and treatment plan as listed above, goals of care, and symptom management. Case was discussed with nursing staff,
specialists, and care coordinators/case management. All labs and imaging personally reviewed by me. Remainder the time spent in detailed review of previous records, lab data, imaging, and other medical provider documentation.
Anticipated Discharge: Today
Discharge Plan
-
Patient Disposition: Home (Routine Discharge)
Discharge Diagnosis/Procedures: Sepsis secondary to aspiration pneumonia
Hoarseness of voice
Rotator cuff tear s/p repair
History of asthma
Diet: As tolerated and Regular
Activity: As tolerated
Referrals:
Jose J Turner MD [Non-Admitting Privileges] - in less than 1 week
Tevin Zamudio MD [Family Provider] -
Prescriptions:
New
pantoprazole 40 mg Tablet,Delayed Release (Dr/Ec)
40 mg PO DAILY Qty: 30 0RF
prednisone 10 mg tablet
10 mg PO DIRECTED Qty: 30 0RF
Rx Instructions:
40 mg daily x 3 days then 30 mg daily x 3 days then 20 mg daily x 3 days then 10 mg daily x 3 days then stop.
azithromycin [Zithromax] 500 mg tablet
500 mg PO DAILY 5 Days Qty: 5 0RF
cefuroxime axetil 500 mg tablet
500 mg PO BID 5 Days Qty: 10 0RF
Probiotic 20 billion cell capsule
20,000 mmu cells PO DAILY Qty: 10 0RF
Continued
sumatriptan succinate [Imitrex] 50 MG tablet
50 mg PO DAILYPRN PRN (Reason: migraine)
Rx Instructions:
Can take 2nd stab if needed daily.
Kariva (28)
1 tab PO DAILY
Patient Comments:
migraines
albuterol 90 mcg/actuation Aerosol
90 mcg INHALATION DAILY PRN (Reason: asthma)
aspirin [Hansa Chewable Aspirin] 81 mg Tablet,Chewable
81 mg PO DAILY
Discharge Orders:
Discharge Patient (As Directed); Ordered 08/11/24
Ordered By: Alessandro Diallo
Discharge Date and Time
Print Language: THAI
[2024-08-11] MEDS: ROCEPHIN 2000 MG IV (15:07)
[2024-08-11] MEDS: STERILE WATER FOR INJECTION 20 ML IV (15:07)
[2024-08-11 15:10] VITALS: BP 133/93
[2024-08-11] MEDS: ZITHROMAX INFUSION 250 IV (15:14)
--- NOTE | 2024-08-14 06:51 | PN.CDI ---
CDI
- -
CDI:
Physician Documentation Request
Admit Date: 08/09/24 11:57
Dear Doctor Yoel,
Please review the following and provide your response in the progress notes.
Clinical Indicators:
Discharge Summary, 08/11
#Hospital course
#...patient underwent left rotator cuff surgery with nerve block in the morning,
#...was some trauma during intubation and she had to be intubated twice
#...with rupture of the cuff balloon with bleeding from the lips and gums.
#...came back with chest tightness and slight cough.
#...admitted for aspiration pneumonia.
#...still tachycardic and still with leukocytosis, upgraded to inpatient.
#During hospitalization patient was treated from the following
#Sepsis secondary to aspiration pneumonia
#...Continue IV antibiotic ceftriaxone and Azithromycin
Based on the above and your clinical assessment, please clarify the following:
Sepsis/Aspiration Pneumonia is a complication of the surgery/anesthesia intubation
Sepsis/Aspiration Pneumonia is unexpected but is NOT a complication of the surgery/anesthesia intubation
Sepsis/Aspiration Pneumonia is an expected occurrence and is not a complication of surgery/anesthesia intubation
Other(please specify)
Use of terms such as suspected, likely, concern for, or probable (associated with a specific diagnosis that is being evaluated, monitored, or treated as if it exists) are acceptable and can be coded in the inpatient setting, when documented at the
time of discharge.
Thank you,
Heather Chávez RN BSN CCDS
CDI Specialist
Please contact via tiger text
Please use your independent medical judgment in providing your response.
== END 2024-08-11 17:50 | disposition home or self-care (01) | DRG 205 ==
LOC: 4 EAST ACU 11:57
PROVIDERS: Nurse Practitioner Family; Physician Assistant; ADMITTING PHYSICIAN Internal Medicine; ATTENDING PHYSICIAN General Practice; EMERGENCY PHYSICIAN Student in an Organized Health Care Education/Training Program; FAMILY PHYSICIAN Family Medicine
DX: J95.89 Other postprocedural complications and disorders of respiratory system, not elsewhere classified (principal); A41.89 Other specified sepsis; J18.9 Pneumonia, unspecified organism; J69.0 Pneumonitis due to inhalation of food and vomit; I47.10 Supraventricular tachycardia, unspecified; R04.2 Hemoptysis; G43.909 Migraine, unspecified, not intractable, without status migrainosus; J45.990 Exercise induced bronchospasm; Y65.8 Other specified misadventures during surgical and medical care; R49.0 Dysphonia; Z60.2 Problems related to living alone; Z90.49 Acquired absence of other specified parts of digestive tract; Z88.5 Allergy status to narcotic agent; Z88.0 Allergy status to penicillin; Z88.2 Allergy status to sulfonamides; Z88.8 Allergy status to other drugs, medicaments and biological substances; Z88.6 Allergy status to analgesic agent; Z88.1 Allergy status to other antibiotic agents; Z91.02 Food additives allergy status; Z79.82 Long term (current) use of aspirin; Z11.52 Encounter for screening for COVID-19
CPT/HCPCS: 71275; 80048; 80053; 84484; 85025; 85027; 85379; 86803; 87070; 87205; 87502; 87811; 93005; 96374; 96375; 99285; Q9967

== ENCOUNTER → 2024-09-10 17:28 | Outpatient (REF) | payer MEDICARE, SELFPAY | LOC: RAD 17:28 | PROVIDERS: ATTENDING PHYSICIAN Family Medicine | DX: J69.0 Pneumonitis due to inhalation of food and vomit (principal) | CPT/HCPCS: 71046 ==